=== PATIENT | female | born 1980 | race Hispanic/Latino ===

== ENCOUNTER → 2022-09-01 | Day surgery (SDC) | payer OTHER ==
[~2022-09-01] MED LIST: FENTANYL CITRATE/PF 100MCG/2 ML INJ ONE; LACTATED RINGER'S 1,000 ML ONE; LIDOCAINE HCL 2% LOCAL INJ 5 ML SDV VIAL INJ ONE; MIDAZOLAM HCL 2 MG/2 ML VIAL ONE; PROPOFOL IV EMULSION 10 MG/ML 20 ML VIAL ONE
[2022-09-01 13:39] VITALS: TEMP 97.3
[2022-09-01 14:00] VITALS: BP 110/75; PULSE 76; RESP 18; O2SAT 99
== END | disposition home or self-care (01) ==
LOC: OR 11:07
PROVIDERS: ATTEND Internal Medicine Gastroenterology
DX: K29.70 Gastritis, unspecified, without bleeding (principal); K20.90 Esophagitis, unspecified without bleeding; Z71.3 Dietary counseling and surveillance; K80.10 Calculus of gallbladder with chronic cholecystitis without obstruction; Z68.27 Body mass index [BMI] 27.0-27.9, adult
CPT/HCPCS: 43239; 43450; 81025; C9113; J2001; J2704; J7121; J2250